=== PATIENT | female | born 1945 ===

== ENCOUNTER → 2021-01-03 07:42 | Outpatient (CLI) | payer OTHER | END | disposition home or self-care (01) | LOC: EKG 07:42 | PROVIDERS: ATTEND Psychiatry & Neurology Clinical Neurophysiology | DX: I48.91 Unspecified atrial fibrillation (principal) ==

== ENCOUNTER 2022-02-14 09:34 | Outpatient (CLI) | payer OTHER | END 2022-02-14 09:43 | disposition home or self-care (01) | LOC: RAD 09:34 | PROVIDERS: ATTEND Physical Medicine & Rehabilitation | DX: M54.2 Cervicalgia (principal) ==